=== PATIENT | male | born 1990 | race Caucasian/White ===

== ENCOUNTER → 2019-02-21 14:35 | Outpatient (CLI) | payer OTHER, SELFPAY ==
[2019-02-21 11:12] VITALS: BMI 28.6
== END ==
PROVIDERS: Family Provider Preventive Medicine Occupational Medicine; PCP Preventive Medicine Occupational Medicine; Referring Provider Physician Assistant; Visit Provider Physician Assistant
DX: J02.9 Acute pharyngitis, unspecified (principal)
CPT/HCPCS: 87081

== ENCOUNTER → 2019-11-14 14:26 | Outpatient (CLI) | payer OTHER, SELFPAY ==
[2019-11-14 12:52] VITALS: BMI 28.6
== END ==
PROVIDERS: Family Provider Preventive Medicine Occupational Medicine; PCP Preventive Medicine Occupational Medicine; Referring Provider Physician Assistant; Visit Provider Physician Assistant
DX: J02.9 Acute pharyngitis, unspecified (principal)
CPT/HCPCS: 87070